=== PATIENT | female | born 1950 | race Caucasian/White ===

== ENCOUNTER 2020-11-27 11:51 | Emergency (ER) | payer MEDICARE ==
--- NOTE | 2020-11-27 14:25 | EDM.PDOC ---
ED HPI GENERAL MEDICAL PROBLEM - General Chief Complaint: Respiratory Problem Stated Complaint: COVID POSITIVE- NOT GETTING BETTER Time Seen by Provider: 11/27/20 13:25 Source of Information: Reports: Patient History Limitations: Reports: No Limitations - History of Present Illness INITIAL COMMENTS - FREE TEXT/NARRATIVE: 69-year-old female, unvaccinated for Covid but usually healthy, has been having symptoms for the last 2 weeks. She was tested positive and initially her primary doctor put her on a course of prednisone but she has some bright red blood in her stool so that was stopped. She did not get antibiotic therapy. Now she is concerned that it is been over 2 weeks if she still feels very fatigued, short of breath on activity and she called her primary and he told her to come to the emergency room for further evaluation. On arrival she is stable, in no respiratory distress with normal vital signs but looks tired and pale. Onset: Gradual Duration: Week(s): (Symptoms for up to 3 weeks) Associated Symptoms: Reports: Fever/Chills (Initially fever or chills, those have resolved), Loss of Appetite, Malaise, Shortness of Breath (Especially with activity), Weakness - Related Data Allergies Allergy/AdvReac Type Severity Reaction Status Date / Time Penicillins Allergy Other Verified 11/27/20 13:19 Home Meds: Home Meds NK [No Known Home Meds] 11/27/20 [History] Social & Family History - Tobacco Use Tobacco Use Status *Q: Never Tobacco User - Recreational Drug Use Recreational Drug Use: No ED ROS GENERAL - Review of Systems Review Of Systems: See Below Constitutional: Reports: Fever, Chills, Malaise, Other (Fevers and chills have resolved for the past week) HEENT: Denies: Rhinitis, Throat Pain, Vision Change Respiratory: Reports: Shortness of Breath, Cough. Denies: Sputum Cardiovascular: Denies: Chest Pain GI/Abdominal: Reports: Decreased Appetite. Denies: Abdominal Pain, Nausea, Vomiting Musculoskeletal: Reports: Muscle Pain (Generalized body aches) Skin: Denies: Rash, Erythema Neurological: Reports: Dizziness, Weakness. Denies: Headache ED EXAM, GENERAL - Physical Exam Exam: See Below Exam Limited By: No Limitations General Appearance: Alert, No Apparent Distress, Other (Patient looks tired and pale but not distressed) Eye Exam: Right Eye: Normal Inspection (Good hydration,) Head: Atraumatic Neck: Supple, Non-Tender Respiratory/Chest: Rhonchi (A few scattered expiratory rhonchi but overall good air movement) Cardiovascular: Regular Rate, Rhythm, Tachycardia GI/Abdominal: Soft, Non-Tender Extremities: Normal Inspection. No: Pedal Edema Neurological: Alert, Oriented, No Motor/Sensory Deficits Psychiatric: Normal Affect, Normal Mood Skin Exam: Warm, Dry Course - Vital Signs Last Recorded V/S: Last Vital Signs Temp 98.2 F 11/27/20 13:17 Pulse 107 H 11/27/20 13:17 Resp 17 11/27/20 13:17 BP 136/82 11/27/20 13:17 Pulse Ox 93 L 11/27/20 13:17 - Orders/Labs/Meds Labs: Laboratory Tests 11/27/20 Range/Units 13:51 WBC 8.9 (4.5-11.0) K/uL RBC 4.48 (3.30-5.50) M/uL Hgb 11.6 L (12.0-15.0) g/dL Hct 36.8 (36.0-48.0) % MCV 82 (80-98) fL MCH 26 L (27-31) pg MCHC 32 (32-36) % Plt Count 396 (150-400) K/uL Neut % (Auto) 75.3 H (36-66) % Lymph % (Auto) 11.0 L (24-44) % [place] % (Auto) 13.0 H (2-6) % Eos % (Auto) 0.5 L (2-4) % Baso % (Auto) 0.2 (0-1) % - Re-Assessments/Exams Free Text/Narrative Re-Assessment/Exam: 11/27/20 14:41 Because of the history of GI bleed and the weakness, a CBC was obtained and her hemoglobin returned 11.6, white count was normal. Unfortunately this patient is still struggling with symptoms of Covid but is outside the window for any treatment. Her O2 saturations are 93 to 95%, respiratory rate is normal and she is just going to have to wait for her immune system to control the disease, she can always return if worsening. Departure - Departure Time of Disposition: 14:26 Disposition: Home, Self-Care 01 Clinical Impression: COVID-19 - Discharge Information Instructions: COVID-19 Referrals: Alex Garcia Sr, MD [Primary Care Provider] - Forms: ED Department Discharge Care Plan Goals: Rest, fluids, [id number] medications for symptoms if needed and increase activity and diet as tolerated. Return if you feel you need oxygen due to worsening shortness of breath. Sepsis Event Note (ED) - Evaluation Sepsis Screening Result: No Definite Risk - Focused Exam Vital Signs: Vital Signs Temp Pulse Resp BP Pulse Ox 11/27/20 13:17 98.2 F 107 H 17 136/82 93 L 11/27/20 13:07 98.2 F 107 H 17 136/82 93 L
== END 2020-11-27 14:31 | disposition home or self-care (01) ==
LOC: JP.ED 11:51
DX: U07.1 COVID-19 (principal); Z88.0 Allergy status to penicillin
CPT/HCPCS: 36415; 85025; 99284

== ENCOUNTER 2022-02-10 05:44 | Inpatient (IN) | payer MEDICARE ==
[2022-02-10] MEDS ORDERED: Bupivacaine 0.5% 30 ML SDV ONE (06:52)
[2022-02-10] MEDS ORDERED: Nozin Nasal Sanitizer NASBOTH SCH (07:00)
[2022-02-10] MEDS ORDERED: Lactated Ringers 1,000 ML IV SCH (07:15)
[2022-02-10] MEDS ORDERED: Midazolam 1 MG/ML 2 ML SDV ONE (07:22)
[2022-02-10] MEDS ORDERED: fentaNYL 100 MCG/2 ML SDV ONE (07:22)
[2022-02-10] MEDS ORDERED: Propofol 200 MG/20 ML SDV ONE ×2 (07:22→09:04)
[2022-02-10] MEDS ORDERED: Tranexamic Acid 660 MG in Sodium Chloride 0.9% 50 ML IV ONE (08:00)
[2022-02-10] MEDS ORDERED: ceFAZolin 2 GM in Sodium Chloride 0.9% 50 ML IV ONE (08:15)
[2022-02-10] MEDS ORDERED: Lactated Ringers 1,000 ML ONE (08:53)
[2022-02-10] MEDS ORDERED: Magnesium Hydroxide 400 MG/5 ML Susp 30 ML Cup PO PRN (09:38)
[2022-02-10] MEDS ORDERED: Morphine 2 MG/ML SYRINGE IVPUSH PRN (09:38)
[2022-02-10] MEDS ORDERED: traMADol 50 MG Tab PO PRN (09:47)
[2022-02-10] MEDS: Ondansetron 4 MG Tab.DIS PO PRN ×3 (11:05→22:19)
[2022-02-10] MEDS: Ketorolac 30 MG/ML SDV IVPUSH SCH ×2 (11:07→17:02)
[2022-02-10] MEDS: Acetaminophen 325 MG Tab PO SCH ×3 (11:11→21:10)
[2022-02-10] MEDS: ceFAZolin 1 GM in Premix Bag 1 BAG IV SCH ×2 (15:37→23:51)
[2022-02-10] MEDS: traMADol 50 MG Tab PO PRN ×2 (15:37→21:12)
[2022-02-10] MEDS: Sodium Chloride 0.9% 1,000 ML IV SCH ×2 (15:43→23:56)
[2022-02-10] MEDS: Nozin Nasal Sanitizer NASBOTH SCH (21:11)
[2022-02-10] MEDS: Aspirin 325 MG Tab.EC PO SCH (21:11)
[2022-02-11] MEDS: Acetaminophen 325 MG Tab PO SCH ×4 (03:03→21:06)
[2022-02-11] MEDS: Ketorolac 30 MG/ML SDV IVPUSH SCH ×2 (03:04→09:24)
[2022-02-11] MEDS: Nozin Nasal Sanitizer NASBOTH SCH ×2 (08:12→21:06)
[2022-02-11] MEDS: Lisinopril 10 MG Tab PO SCH (08:12)
[2022-02-11] MEDS: Docusate Sodium 100 MG Cap PO SCH (08:12)
[2022-02-11] MEDS: Aspirin 325 MG Tab.EC PO SCH ×2 (08:12→21:07)
[2022-02-11] MEDS: Ibuprofen 600 MG Tab PO PRN ×2 (16:07→22:46)
[2022-02-12] MEDS: Acetaminophen 325 MG Tab PO SCH ×3 (02:48→13:25)
[2022-02-12] MEDS: Nozin Nasal Sanitizer NASBOTH SCH (08:00)
[2022-02-12] MEDS: Lisinopril 10 MG Tab PO SCH (08:01)
[2022-02-12] MEDS: Aspirin 325 MG Tab.EC PO SCH (08:01)
[2022-02-12] MEDS: Docusate Sodium 100 MG Cap PO SCH (08:01)
[2022-02-12] MEDS: Ondansetron 4 MG Tab.DIS PO PRN (13:25)
== END 2022-02-12 14:57 | disposition home or self-care (01) | DRG 470 ==
LOC: JP.SDS 05:44 → JP.MS 09:38 → JP.SDS 02-11 11:30 → JP.MS 02-11 11:30
PROVIDERS: ADMIT Specialist; ATTEND Specialist
PROC: 0SR903A Replacement of Right Hip Joint with Ceramic Synthetic Substitute, Uncemented, Open Approach (ICD-10-PCS; principal; 2022-02-10)
DX: M16.11 Unilateral primary osteoarthritis, right hip (principal); I10 Essential (primary) hypertension; Z20.822 Contact with and (suspected) exposure to COVID-19
CPT/HCPCS: 27130; 72170; 72170-26; 97110-GP; 97116-GP; 97161-GP; 97530-GP; A9270-GY; C1713; C1776; J0690; J1885; J2250; J2704; J3010; J3490; J7030; J7120; Q0162; U0002